=== PATIENT | male | born 1980 | race Caucasian/White ===

== ENCOUNTER → 2017-06-04 | Outpatient (CLI) | payer BC ==
[2017-06-04 10:32] LABS: BUN/CREATININE RATIO 18.8 (6.0-26.0); CALCIUM 9.4 mg/dL (8.4-10.2)
== END ==
LOC: LAB 09:21
PROVIDERS: Internal Medicine Clinical Cardiac Electrophysiology
DX: I49.3 Ventricular premature depolarization (principal)